=== PATIENT | female | born 1960 | race Two or more races ===

== ENCOUNTER 2018-10-04 12:38 | Emergency (ER) | payer OTHER ==
[2018-10-04 13:03] VITALS: BP 128/90
--- NOTE | 2018-10-04 13:08 | ED Physician Documentation ---
PD HPI UPPER EXT INJURY - Stated complaint Stated Complaint: SPLINTER IN THUMB - Chief complaint Chief Complaint: Ext Problem - History obtained from History obtained from: Patient - History of Present Illness Location: Right (Ring finger splinter x 2 weeks, increasing pain, no fever, tetanus unknown) Review of Systems Constitutional: reports: Reviewed and negative Throat: reports: Reviewed and negative Cardiac: reports: Reviewed and negative PD PAST MEDICAL HISTORY - Present Medications Home Medications: Ambulatory Orders Medication Instructions Recorded Confirmed Cephalexin [Keflex] 500 mg PO Q6H #28 capsule 10/04/18 - Allergies Allergies/Adverse Reactions: Allergies Allergy/AdvReac Type Severity Reaction Status Date / Time No Known Drug Allergies Allergy Verified 10/04/18 13:03 - Social History Does the pt smoke?: No Smoking Status: Never smoker PD ED PE NORMAL - Vitals Vital signs reviewed: Yes - General General: Alert and oriented X 3, No acute distress - Extremities Extremities: Other (In the pulp of the right ring finger, ulnar side there is a palpable splinter that feels like it goes down the ulnar side of the ring finger to the level of the DIP with some evidence of cellulitis infection.) - Neuro Neuro: Alert and oriented X 3, Normal speech Results - Vitals Vitals: Vital Signs - 24 hr 10/04/18 13:01 Temperature 36.6 C Heart Rate 84 Respiratory 20 Rate Blood Pressure 128/90 H O2 Saturation 100 Oxygen O2 Source Room air Procedures - General procedure General procedure: The right fourth finger was digitally blocked with buffered lidocaine in standard fashion then prepped with Hibiclens. A small incision was made at the tip where the palpable splinter was and a thorn was removed. Departure - Departure Disposition: 01 Home, Self Care Clinical Impression: Finger, superficial foreign body (splinter), infected Qualifiers: Encounter type: initial encounter Qualified Code(s): S60.459A - Superficial for eign body of unspecified finger, initial encounter; L08.9 - Local infection of the skin and subcutaneous tissue, unspecified Condition: Good Record reviewed to determine appropriate education?: Yes Health Concerns: Finger splinter with infection Plan of Treatment: Incision done with splinter removal, not 100% sure that we got all of it. We will start antibiotics and if it worsens or is persistent return for reevaluation. Care Goals: improvement Assessment: as above Instructions: ED Foreign Body Splinter Removal Prescriptions: Cephalexin [Keflex] 500 mg PO Q6H #28 capsule
[2018-10-04] MEDS ORDERED: TETANUS/DIPHTHERIA/PERTUSSIS 0.5 ML SYRINGE IM ONE (13:10)
[2018-10-04] MEDS ORDERED: BUFFERED LIDOCAINE 10 ML SYRINGE SUBQ STA (13:10)
[2018-10-04] MEDS ORDERED: cephALEXin 250 MG CAPSULE PO STA (13:11)
== END 2018-10-04 14:01 | disposition home or self-care (01) ==
LOC: ED 12:38
DX: S60.454A Superficial foreign body of right ring finger, initial encounter (principal); L03.011 Cellulitis of right finger; W45.8XXA Other foreign body or object entering through skin, initial encounter; Y93.H2 Activity, gardening and landscaping; Z23 Encounter for immunization
CPT/HCPCS: 10120; 90471; 90715; 99283; A9270

== ENCOUNTER 2023-02-05 07:37 | Outpatient (CLI) | payer MEDICAID ==
[2023-02-05 12:06] LABS: BASOPHILS # (AUTO) 0.1 10^3/uL (0.0-0.1); BASOPHILS % (AUTO) 1.1 %; EOSINOPHILS # (AUTO) 0.2 10^3/uL (0.0-0.7); EOSINOPHILS % (AUTO) 2.7 %; HCT - HEMATOCRIT 42.4 % (37.0-47.0); HGB - HEMOGLOBIN 13.6 g/dL (12.0-16.0); LYMPHOCYTES # (AUTO) 2.7 10^3/uL (1.5-3.5); LYMPHOCYTES % (AUTO) 43.1 %; MEAN CORPUSCULAR HEMOGLOBIN 28.3 pg (27.0-31.0); MEAN CORPUSCULAR HGB CONC 32.1 g/dL (32.0-36.0); MEAN CORPUSCULAR VOLUME 88.3 fL (81.0-99.0); MEAN PLATELET VOLUME 10.7 fL (7.9-10.8); MONOCYTES # (AUTO) 0.5 10^3/uL (0.0-1.0); MONOCYTES % (AUTO) 8.3 %; NEUTROPHILS # (AUTO) 2.8 10^3/uL (1.5-6.6); NEUTROPHILS % (AUTO) 44.5 %; PLT - PLATELET COUNT 345 10^3/uL (130-450); WHITE BLOOD COUNT 6.4 x10^3/uL (4.8-10.8)
[2023-02-05 12:19] LABS: ALBUMIN 4.4 g/dL (3.2-5.5); ALBUMIN/GLOBULIN RATIO 1.5 (1.0-2.2); ALKALINE PHOSPHATASE 80 IU/L (42-121); ALT ALANINE AMINOTRANSFERASE 17 IU/L (10-60); AST ASPARTATE AMINOTRANSFERASE 16 IU/L (10-42); BILIRUBIN,TOTAL 0.4 mg/dL (0.2-1.0); BUN - BLOOD UREA NITROGEN 15 mg/dL (6-20); CALCIUM 9.6 mg/dL (8.5-10.3); CARBON DIOXIDE - CO2 30 mmol/L (21-32); CHLORIDE 104 mmol/L (101-111); CHOL/HDL RATIO 4.6 (<4.4); CHOLESTEROL 287 mg/dL; CREATININE 0.6 mg/dL (0.6-1.3); GFR - MDRD 101 (>89); GLUCOSE 95 mg/dL (74-104); HDL CHOLESTEROL 62 mg/dL; LDL CHOLESTEROL,CALCULATED 192 mg/dL; LDL/HDL RATIO 3.1 (<4.4); POTASSIUM 3.8 mmol/L (3.5-4.5); SODIUM 139 mmol/L (135-145); TOTAL PROTEIN 7.4 g/dL (6.4-8.9); TRIGLYCERIDES 163 mg/dL (48-352); VLDL CHOLESTEROL 33 mg/dL
== END 2023-02-05 07:38 | disposition home or self-care (01) ==
LOC: LAB.N 07:37
PROVIDERS: ATTEND Physician Assistant
DX: Z00.00 Encounter for general adult medical examination without abnormal findings (principal); J30.2 Other seasonal allergic rhinitis; Z13.220 Encounter for screening for lipoid disorders
CPT/HCPCS: 36415; 80053; 80061; 83721; 85025